=== PATIENT | female | born 1970 | race African-American/Black ===

== ENCOUNTER → 2016-12-06 | Outpatient (CLI) | payer BC ==
[~2016-12-06] MED LIST: AZITHROMYCIN250 MG PO; FIORICET 50-321 EACH PO; FIORINAL 50-321 EACH PO; FLEXERIL PO; FLONASE16 GM; IMODIUM2 MG PO; MEDROL PO; PHENERGAN PO; VICODIN 5/500 T1 TAB PO; ZITHROMAX PO; ZYRTEC PO
--- NOTE | ~2016-12-06 | MY29 ---
[facility] A Service of [facility] RADIOLOGY TEXT RESULTS PATIENT: SILVANA KEE LOCATION: [facility] : 72 UNIT #: [id number] AGE: [address]: Magaly Parsons MD SEX: F ORDER DR: [id number] [facility] [address] [place], [place] [address] [id number] O MR#: [id number] Acc #: [id number] NAME: SILVANA KEE : 1970 SEX: F STUDY DATE/TIME: 12/06/2016 7:53 UNIT: [facility] ROOM: STUDY DESCRIPTION: MY SONJA SCREENING W/ CAD BILAT Attending Physician: Magaly Parsons M.D. Referring Physician: Magaly Parsons M.D. Ordering Physician: Magaly Parsons M.D. Primary Care Physician: Magaly Parsons M.D. MEDICAL IMAGING REPORT This report is preliminary unless electronic signature is present EXAM Digital screening mammogram, 12/06/2016 HISTORY 46-year-old woman no risk elevation. Annual screening. COMPARISON 11/01/2011, 07/03/2015 FINDINGS Digital imaging of each breast was completed utilizing screening protocol. Review includes FDA-approved CAD device. Breast parenchyma is partially fatty replaced and heterogeneous with subareolar duct prominence in each breast. Focal parenchymal dominance inner hemisphere left breast is less conspicuous. I see no suspicious mass characteristics. There are no interval occurring microcalcifications and no architectural deformity. IMPRESSION Negative mammogram. Annual screening recommended. Patients over the age of 40 are entered into a reminder system with target due date for the next mammogram. A result letter will also be sent to the patient. BIRADS: 1 Negative Dictated by... Dalton Ruff M.D. THIS IS AN ELECTRONICALLY VERIFIED REPORT Dalton Ruff M.D. at 12/06/2016 10:[address] [facility] A Service of [facility] RADIOLOGY TEXT RESULTS PATIENT: SILVANA KEE [id number] 72 UNIT #: [id number] AGE: [address]: Magaly Parsons MD SEX: F ORDER DR: TD: 12/06/2016 10:20 JOB #: [id number] MEDICAL IMAGING REPORT Page 1 of 1 COPY
== END | disposition home or self-care (01) ==
LOC: CWCC 07:27
DX: Z12.31 Encounter for screening mammogram for malignant neoplasm of breast (principal)
CPT/HCPCS: G0202